=== PATIENT | male | born 1980 | race African-American/Black ===

== ENCOUNTER 2018-08-10 20:55 | Emergency (ER) | payer BC ==
[~2018-08-10] VITALS: Ht 175.3 cm; Wt 75.0 kg
[2018-08-10] MEDS ORDERED: LEVETIRACETAM 500MG PREMIX 100 ML IV ONE (21:45)
[2018-08-10 22:02] LABS: BASOPHILS % 0.9 % (0.0-2.0); EOSINOPHILS % 0.5 % (0.0-5.0); HEMATOCRIT. 37.8 % (42.0-52.0); HEMOGLOBIN. 12.9 g/dL (14.0-18.0); MEAN CORPUSCULAR HEMOGLOBIN 31.1 pg (28.0-32.0); MEAN CORPUSCULAR VOLUME 91.5 fL (80.0-94.0); MEAN PLATELET VOLUME 10.3 fl (7.4-10.4); MONOCYTES % 10.6 % (2.0-8.0); PLATELET 164 x1000/uL (130-400); RED BLOOD CELL COUNT 4.13 mill/uL (4.7-6.1); RED CELL DISTRIBUTION WIDTH 14.6 % (11.6-14.6)
[2018-08-10 22:07] LABS: CHLORIDE 99 mEq/L (98-107)
[2018-08-10 22:11] LABS: ETHANOL BLOOD < 10 mg/dL
[2018-08-11 00:05] LABS: *AMPHETAMINES SCREEN URINE NEGATIVE (NEGATIVE); *BARBITURATES SCREEN URINE NEGATIVE (NEGATIVE); *BENZODIAZEPINES SCREEN URINE PRESUMTIVE POSITIVE (NEGATIVE); *COCAINE SCREEN URINE NEGATIVE (NEGATIVE)
[2018-08-11 00:06] LABS: CANNABINOID URINE SCREEN NEGATIVE (NEGATIVE); METHADONE URINE SCREEN NEGATIVE (NEGATIVE); OPIATES URINE SCREEN NEGATIVE (NEGATIVE); PHENCYCLIDINE URINE SCREEN NEGATIVE (NEGATIVE)
[2018-08-11 01:24] VITALS: BP 114/47
== END 2018-08-11 01:27 | disposition home or self-care (01) ==
LOC: ER 20:55
DX: R56.9 Unspecified convulsions (principal); R55 Syncope and collapse
CPT/HCPCS: 36415; 70450; 80053; 80305; 80320; 85025; 93005; 96365; 99284; J1953; G0480

== ENCOUNTER 2019-08-29 16:55 | Emergency (ER) | payer BC ==
[~2019-08-29] VITALS: Ht 175.3 cm; Wt 82.0 kg
[2019-08-29] MEDS ORDERED: KEPPRA (17:06)
[2019-08-29] MEDS ORDERED: LEVETIRACETAM 500MG PREMIX 100 ML IV ONE (17:30)
[2019-08-29 17:59] LABS: BASOPHILS % 1.2 % (0.0-2.0); EOSINOPHILS % 2.2 % (0.0-5.0); HEMATOCRIT. 39.2 % (42.0-52.0); HEMOGLOBIN. 13.1 g/dL (14.0-18.0); LYMPHOCYTES % 52.4 % (20.0-50.0); MEAN CORPUSCULAR HEMOGLOBIN 30.4 pg (28.0-32.0); MEAN CORPUSCULAR VOLUME 90.9 fL (80.0-94.0); MEAN PLATELET VOLUME 12.2 fl (7.4-10.4); MONOCYTES % 14.2 % (2.0-8.0); PLATELET 110 x1000/uL (130-400); RED BLOOD CELL COUNT 4.31 mill/uL (4.7-6.1)
[2019-08-29 18:05] LABS: CHLORIDE 107 mEq/L (98-107)
[2019-08-29 18:57] VITALS: BP 120/66
== END 2019-08-29 19:00 | disposition home or self-care (01) ==
LOC: ER 16:55
DX: G40.909 Epilepsy, unspecified, not intractable, without status epilepticus (principal)
CPT/HCPCS: 36415; 80053; 85025; 96374; 99284; J1953

== ENCOUNTER 2024-07-30 07:12 | Emergency (ER) | payer BC ==
[~2024-07-30] VITALS: Ht 177.8 cm; Wt 64.0 kg
[~2024-07-30 07:12] MED LIST: KEPPRA
[2024-07-30 07:14] VITALS: O2SAT 100
[2024-07-30] MEDS: SODIUM CHLORIDE 0.9% 1,000 ML IV ONE (07:44)
[2024-07-30] MEDS: LEVETIRACETAM 1000MG PREMIX 100 ML IV ONE (07:44)
[2024-07-30 08:09] LABS: BASOPHILS % 0.3 % (0.0-2.0); EOSINOPHILS % 0.5 % (0.0-5.0); HEMATOCRIT. 39.9 % (42.0-52.0); HEMOGLOBIN. 12.9 g/dL (14.0-18.0); LYMPHOCYTES % 16.2 % (20.0-50.0); MEAN CORPUSCULAR HEMOGLOBIN 29.7 pg (28.0-32.0); MEAN CORPUSCULAR HGB CONC 32.4 g/dL (31.0-37.0); MEAN CORPUSCULAR VOLUME 91.6 fL (80.0-94.0); MEAN PLATELET VOLUME 11.3 fl (7.4-10.4); MONOCYTES % 9.2 % (2.0-8.0); NEUTROPHILS % 73.8 % (40.0-76.0); PLATELET 155 x1000/uL (130-400); RED BLOOD CELL COUNT 4.36 mill/uL (4.7-6.1); RED CELL DISTRIBUTION WIDTH 14.2 % (11.6-14.6); WHITE BLOOD COUNT 7.1 x1000/uL (4.5-11.0)
[2024-07-30 08:23] LABS: CHLORIDE 104 mEq/L (98-107); POTASSIUM 4.1 mEq/L (3.5-5.1); SODIUM 138 mEq/L (136-145)
[2024-07-30 08:24] LABS: CARBON DIOXIDE 29 mEq/L (21-32)
[2024-07-30 08:25] LABS: CALCIUM 9.7 mg/dL (8.7-10.4)
[2024-07-30] MEDS: KETOROLAC 30MG/ML VIAL IV ONE (08:27)
[2024-07-30 08:29] LABS: CREATININE 1.1 mg/dL (0.6-1.3)
[2024-07-30 08:30] LABS: ETHANOL BLOOD < 10 mg/dL (<10); GLUCOSE 97 mg/dL (70-105); UREA NITROGEN BLOOD 12 mg/dL (9-23)
[2024-07-30 09:57] LABS: CLARITY URINE CLOUDY (CLEAR); COLOR URINE YELLOW (YELLOW); GLUCOSE URINE NEGATIVE (NEGATIVE); KETONES URINE 3+ (NEGATIVE); LEUKOCYTE ESTERASE URINE NEGATIVE (NEGATIVE); NITRITE URINE NEGATIVE (NEGATIVE); OCCULT BLOOD URINE NEGATIVE (NEGATIVE); PH URINE 7.5 (4.5-8.0); PROTEIN URINE NEGATIVE (NEGATIVE); SPECIFIC GRAVITY URINE 1.021 (1.005-1.030)
[2024-07-30 10:09] LABS: BACTERIA URINE FEW; RBC URINE NONE SEEN /hpf (0-2); SQUAMOUS EPITHELIAL CELL URINE NONE SEEN /lpf (RARE/1+); WBC URINE 0-2 /hpf (0-2); YEAST URINE NONE SEEN
[2024-07-30 10:21] LABS: *AMPHETAMINES SCREEN URINE NEGATIVE (NEGATIVE)
[2024-07-30 10:22] LABS: *BARBITURATES SCREEN URINE NEGATIVE (NEGATIVE); *BENZODIAZEPINES SCREEN URINE NEGATIVE (NEGATIVE); *COCAINE SCREEN URINE NEGATIVE (NEGATIVE); CANNABINOID URINE SCREEN NEGATIVE (NEGATIVE); ECSTASY MDMA SCREEN URINE NEGATIVE (NEGATIVE); METHADONE URINE SCREEN NEGATIVE (NEGATIVE); OPIATES URINE SCREEN NEGATIVE (NEGATIVE); PHENCYCLIDINE URINE SCREEN NEGATIVE (NEGATIVE)
[2024-07-30 13:16] VITALS: BP 131/58; PULSE 54; RESP 13; TEMP 37.1; O2SAT 100
== END 2024-07-30 13:23 | disposition home or self-care (01) ==
LOC: ER 07:12
DX: R56.9 Unspecified convulsions (principal)
CPT/HCPCS: 80305; 80048; 81003; 80320; 85025; 36415; 96365; 96375; 99284; J1953; J1885; J7030; G0480